=== PATIENT | male | born 1960 | race Caucasian/White ===

== ENCOUNTER 2022-07-20 08:31 | Outpatient (CLI) | payer BC, SELFPAY ==
[2022-07-20 15:34] LABS: Chloride* 100 mmol/L (96-114)
[2022-07-20 15:35] LABS: Potassium* 4.6 mmol/L (3.6-5.1); Sodium* 137 mmol/L (135-149)
[2022-07-20 15:37] LABS: Alanine Aminotransferase* 47 U/L (4-50); Blood Urea Nitrogen* 14 mg/dL (7-30); Carbon Dioxide* 28 mmol/L (20-32); Cholesterol* 121 mg/dL (90-199); Creatinine* 0.7 mg/dL (0.5-1.5); Estimated Glomerular Filt Rate 104 ml/min
[2022-07-20 15:38] LABS: Calcium* 9.9 mg/dL (8.4-10.6); Glucose* 128 mg/dL (60-115); HDL Cholesterol* 32 mg/dL (>=40); LDL Cholesterol Calculated 66 mg/dL (<100); Triglycerides* 116 mg/dL (40-149)
[2022-07-20 16:07] LABS: PSA Screen* 0.38 ng/mL (0.10-4.00)
== END 2022-07-20 08:32 | disposition home or self-care (01) ==
LOC: FBOREF 08:34
PROVIDERS: PCP Family Medicine; Visit Provider Family Medicine
DX: E78.5 Hyperlipidemia, unspecified (principal); I10 Essential (primary) hypertension; E11.9 Type 2 diabetes mellitus without complications; I48.91 Unspecified atrial fibrillation; Z12.5 Encounter for screening for malignant neoplasm of prostate
CPT/HCPCS: 80048; 80061; 84153; 84460

== ENCOUNTER 2023-01-04 14:27 | Outpatient (CLI) | payer BC, SELFPAY | END 2023-01-04 14:28 | disposition home or self-care (01) | PROVIDERS: PCP Family Medicine; Visit Provider Family Medicine | DX: R10.9 Unspecified abdominal pain (principal); E11.9 Type 2 diabetes mellitus without complications; E78.5 Hyperlipidemia, unspecified; I10 Essential (primary) hypertension; I48.91 Unspecified atrial fibrillation | CPT/HCPCS: 80048; 80076; 83690; 85025 ==

== ENCOUNTER 2023-01-05 10:27 | Outpatient (CLI) | payer BC, SELFPAY ==
--- NOTE | 2023-01-05 10:45 | CRLHL7_ITS ---
For Patients: As a result of the Century Cures Act, medical imaging exams and procedure reports are released immediately into your electronic medical record. You may view this report before your referring provider. If you have questions, please contact your health care provider. INDICATION: Right upper quadrant abdominal pain. TECHNIQUE: Right upper quadrant ultrasound. FINDINGS: Cholelithiasis. There is a large stone near the gallbladder neck measuring up to 3 cm potentially impacted. There may be a gallbladder wall polyp versus an adherent stone near the fundus. The gallbladder wall is thickened measuring 6.6 mm. Questionable trace pericholecystic fluid. Echogenic liver suggesting fatty infiltration. No intrahepatic mass. No intrahepatic biliary ductal dilatation. No hydronephrosis of the right kidney which measures 11.9 x 4.8 x 5.2 cm. The visualized proximal abdominal aorta and IVC are unremarkable. The included pancreas is within normal limits. IMPRESSION: 1. Cholelithiasis. Thick-walled gallbladder. Trace pericholecystic fluid. Findings may reflect acute cholecystitis. Please correlate clinically. 2. No biliary ductal dilatation. 3. Echogenic liver suggesting fatty infiltration or other intrinsic hepatic parenchymal process. Dictated by Kade Scott MD @ 01/05/2023 11:19:38 AM (Electronically Signed)
== END 2023-01-05 10:28 | disposition home or self-care (01) ==
LOC: US 10:28
PROVIDERS: PCP Family Medicine; Visit Provider Family Medicine
DX: R10.9 Unspecified abdominal pain (principal); K80.20 Calculus of gallbladder without cholecystitis without obstruction; R11.0 Nausea
CPT/HCPCS: 76705

== ENCOUNTER 2023-01-06 10:55 | Day surgery (SDC) | payer BC, SELFPAY ==
[2023-01-06] VITALS (17 sets, daily range): BP systolic 103–126; BP diastolic 63–80; PULSE 36–86; RESP 12–16; TEMP 36.3–37.1; O2SAT 91–96; BMI 33.3
[2023-01-06] MEDS: LACTATED RINGERS 1000 ML 1,000 ML 100 ML IV ×2 (12:23→13:44)
[2023-01-06] MEDS: SODIUM CHLORIDE 0.9 % (FLUSH) 10 ML SYRINGE IVF (12:23)
[2023-01-06] MEDS: CEFAZOLIN 2 GM INJ IVP (13:43)
[2023-01-06] MEDS: BUPIVACAINE 0.25% 30 ML 20 ML INJECTION (16:14)
--- NOTE | 2023-01-06 16:26 | W.ANESCHARGE ---
Anesthesia Charges Start Date/Time Anesthesia Start Date: 01/06/23 Anesthesia Start Time: 13:26 Stop Date/Time Anesthesia Stop Date: 01/06/23 Anesthesia Stop Time: 16:28
--- NOTE | 2023-01-06 16:27 | P.GSOP_ITS ---
Operative Note Date of procedure: 01/06/23 Pre-op diagnosis: 1. Acute cholecystitis. Post-op diagnosis: 1. Acute on chronic cholecystitis. Type of Procedure: 1. Laparoscopic cholecystectomy. Indications: 62-year-old male was seen by primary care doctor with persistent right upper quadrant pain that started several days ago. The pain was severe and started after eating greasy food. Patient had similar episodes of pain in the past after eating hamburger but this pain was persistent and was not resolving. Upon his workup he was found to have an elevated WBC of 16. His liver function tests and lipase were normal. An ultrasound of the gallbladder was obtained that showed thickened gallbladder wall of 6 mm. There was a stone lodged in the gallbladder neck. The common bile duct was normal in size. On clinical exam patient had tenderness to palpation in the right upper quadrant with positive De León sign. Given patient's clinical history and his physical exam, laparoscopic cholecystectomy was recommended. The procedure was discussed in detail. The risks associated procedure including infection, bleeding, injury to intra-abdominal organs, and injury to the common bile duct were all discussed with the patient and he agreed to proceed. Procedure Description: After discussing the risks and benefits of the procedure, the patient signed informed consent.? The operative site was marked and the patient was brought to the operating room and placed on the operating table in supine position.? Care was taken to pad the patient's pressure points.?? The patient was then intubated by anesthesia.?? The operative site was then prepped and draped in the usual sterile fashion.? A time-out was then performed. A 5-mm laparoscopy port was placed in the left upper quadrant guided by a 5-mm laparoscope placed into a translucent trochar.~ Passage through the layers of the abdominal wall was visualized with the laparoscope.~ A pneumoperitoneum was established. A 0-degree 5-mm laparoscope was advanced into the abdomen. The abdomen was briefly surveyed, and no adhesions were noted. A 10-mm port were placed infraumbilically and two more 5 mm ports were placed on the right under direct visualization by laparoscope. The camera was then changed to 10 mm 30- degree scope and placed into the abdomen through the 10 mm port. The left upper quadrant port entrance was examined and no injury to intra-abdominal organs was identified. The gallbladder was identified. The gallbladder was distended and transverse colon was wall in the gallbladder of. Those transverse colon adhesions were taken down bluntly with suction tip and with hook cautery. The gallbladder was very difficult to grasp and was decompressed with laparoscopic needle and 60 mL syringe. 10 mL of clear fluid was aspirated confirming hydrops gallbladder. The gallbladder was then grasped and retracted cephalad. However, visualization was very difficult because of the long gallbladder and the degree of inflammation surrounding the gallbladder. Peritoneum over the infundibulum was scored with hook cautery. Thick inflammatory rind was peeled off the gallbladder infundibulum bluntly with the suction tip and with hook cautery. Duodenum was adjacent to the field of dissection and care was taken not to injure the duodenum. The infundibulum was grasped and retracted laterally, exposing the peritoneum overlying the triangle of Calot. The cystic duct was identified and inflammatory rind was peeled off the cystic duct. The node of Calot was identified as well and was dissected with hook cautery and retracted into the gallbladder. This exposed the cystic artery. The cystic artery was then circumferentially dissected bluntly and with hook cautery. The cystic artery and the cystic duct were clearly going into the gallbladder. The cystic duct was then doubly ligated with surgical clips on the patient's side and singly clipped on the gallbladder side and divided. The 5 mm clips just barely went across the cystic duct. I elected to place 0-0 PDS endoloop just proximal to the cystic duct clips to avoid a stump leak. The cystic artery was then similarly ligated with 5 mm clips and divided as well. The gallbladder was dissected from the liver bed in retrograde fashion using hookcautery. This dissection was very difficult because it was difficult to tell where the plane between the gallbladder and the liver was. The gallbladder appeared to be intrahepatic. Arterial bleeding was noted during this dissection. This bleeding was coming from a small artery in the gallbladder fossa. This was controlled with two 5 mm clips. Multiple openings were made in the gallbladder during this dissection because of the difficulty visualizing the right plane between the gallbladder and the liver. Thickened sludge came out from the gallbladder. This was suctioned out. Two stones came out from the gallbladder and those were grasped and removed from the abdomen through laparoscopic ports. The gallbladder was placed into an Endo-Catch bag and removed through the infraumbilical incision. The skin and fascia of this infraumbilical incision had to be incised and the incision had to be enlarged to accommodate removal of the gallbladder. Surgical site was examined for bleeding. No bleeding was seen in the surgical field. 1 g of Marianne was sprayed over the gallbladder fossa. The fascia of the infraumbilical incision was then closed with a running 0-0 vicryl stitch. This closure was examined intra-abdominally, and no intra- abdominal structures were incarcerated in the closure. Pneumoperitoneum was completely reduced after viewing removal of the trocars under direct vision. The skin was then closed with 4-0 monocryl and steristrips were applied. Instrument, sponge, and needle counts were correct at closure and at the conclusion of the case. The patient was transferred to PACU in stable condition. Findings: Hydrops gallbladder. Acute on chronic inflammation. Anesthesia: GETA Surgeon: Vonnie Donato MD Estimated blood loss (mL): 50 Specimen: Gallbladder Condition: stable Disposition: PACU
--- NOTE | 2023-01-06 16:33 | W.ANESCHARGE ---
Anesthesia Charges Start Date/Time Anesthesia Start Date: 01/06/23 Anesthesia Start Time: 13:26 Stop Date/Time Anesthesia Stop Date: 01/06/23 Anesthesia Stop Time: 16:28
[2023-01-06] MEDS: OXYCODONE 5 MG TABLET PO (18:10)
[2023-01-06] MEDS: ACETAMINOPHEN 325 MG TABLET 650 MG PO (18:11)
[2023-01-06] MEDS: PIPERACILLIN/TAZOBACTAM 3.375 GM in 0.9 % SODIUM CHLORIDE Mini-bag 100 ML IVPB (18:46)
[2023-01-06] MEDS: 0.9 % SODIUM CHLORIDE 250 ml IV (18:49)
--- NOTE | 2023-01-06 22:29 | PM.IMCN1 ---
Date of Consult Patient: [facility] Patient Consult date: 01/06/23 Requesting Physician: General Surgery Primary Care Provider: Elias Johnson MD Consult Narrative Reason for consult: Assist with postop care of diabetes, hypertension, h/o A Fib Narrative: Tu Correia is a 62 year old man who just underwent an urgent laparoscopic cholecystectomy due to progressive symptoms associated with acute cholecystitis and cholelithiasis. Surgery proceeded without complications. Per surgeon report, gallbladder rather inflamed. Blood sugars have been well controlled on current medication regimen specified below. Hemoglobin A1c most recently 7. Denies hypoglycemic episodes. Denies hyperglycemia. Adhering to his medication regimen. Historically he has had atrial fibrillation and complications associated there with. Underwent cardiac radiofrequency ablation therapy a few years ago own has not had recurrence of atrial fibrillation since. Continues to take diltiazem for hypertension control. Continues to take other antihypertensive medications as well. Generally this is well controlled. Review of Systems Status of ROS: Reports: 10 or more systems reviewed and unremarkable except as noted in History and below Narrative: Denies chest heaviness, pressure, tightness, or pain. Denies dyspnea at rest, paroxysmal nocturnal dyspnea, orthopnea. Has baseline dyspnea with exertion. Denies syncope or near-syncope. Abdominal pain is much improved since surgery. Denies nausea or vomiting. No recent illnesses. Denies fevers, rigors, diaphoresis. Denies cough. Denies dysuria, urgency, frequency, hematuria. Denies diarrhea. No skin rashes or wounds. Bowel and bladder are functioning satisfactorily. No focal motor neurologic deficits. Lives home with his . Generally physically active. No physical limitations. Designates as power of county attorney for health should that be required. Full resuscitation in the event of cardiopulmonary demise. [facility] Medical History (Updated 01/06/23 @ 22:28 by Angel Matthews MD) Eczema ?L30.9 - Dermatitis, unspecified (ICD-10) Spinal stenosis of lumbar region with neurogenic claudication (2014) ?M48.062 - Spinal stenosis, lumbar region with neurogenic claudication (ICD-10) History of sepsis (09/25/14) ?Z86.19 - Personal history of other infectious and parasitic diseases (ICD-10) Chronic low back pain ?M54.50 - Low back pain, unspecified (ICD-10) ?G89.29 - Other chronic pain (ICD-10) Atrial fibrillation ?I48.91 - Unspecified atrial fibrillation (ICD-10) Hypertension ?I10 - Essential (primary) hypertension (ICD-10) Type 2 diabetes mellitus ?E11.9 - Type 2 diabetes mellitus without complications (ICD-10) Surgical History History of vasectomy ?Z98.52 - Vasectomy status (ICD-10) History of partial knee replacement (05/2012) ?Z96.659 - Presence of unspecified artificial knee joint (ICD-10) History of lumbar fusion (2014) ?Z98.1 - Arthrodesis status (ICD-10) History of colonoscopy (08/26/11) ?Z98.890 - Other specified postprocedural states (ICD-10) History of cardiac radiofrequency ablation (RFA) ?Z98.890 - Other specified postprocedural states (ICD-10) History of arthroscopy of right knee (04/30/11) ?Z98.890 - Other specified postprocedural states (ICD-10) History of arthroplasty of left knee (05/03/18) ?Z96.652 - Presence of left artificial knee joint (ICD-10) Family History Mother Diabetes Social History Narrative: ,2 kids [employer] Non-smoker Social EtOH Smoking Status: Former smoker How often do you have a drink containing alcohol: never AUDIT-C Alcohol total score: 0 Non-prescribed substance use: denies use Caffeine: No Little interest or pleasure in doing things: not at all Feeling down, depressed, or hopeless: not at all Meds Home Medications and Allergies Home Medications Medication Instructions Recorded Confirmed Type aspirin 81 mg tablet,delayed 81 mg PO QDAY 02/04/22 01/06/23 History release glucosamine sulfate 500 mg capsule 500 mg PO QDAY 02/04/22 01/06/23 History multivitamin 1 tab PO QDAY 02/04/22 01/06/23 History triamcinolone acetonide 0.1 % 1 applic topical BID PRN 01/06/23 01/06/23 History topical cream Home Medication Comments: Current medications include the following: amoxicillin-pot clavulanate 875-125 mg 1 tab PO BID aspirin 81 mg PO QDAY blood sugar diagnostic ([employer] Verio test strips) USE AND DISCARD 1 TEST STRIP TWO TIMES A DAY. diltiazem HCl ER 240 mg PO QDAY dulaglutide (Trulicity) 1.5 mg (0.5 mL) subcut QWEEK glucosamine sulfate 500 mg PO QDAY hydrocodone-acetaminophen 5-325 mg 1 tab PO Q4-6H PRN linagliptin (Tradjenta) 5 mg PO QDAY losartan-hydrochlorothiazide 100-25 mg 1 tab PO QDAY metformin ER 2,000 mg (4 x 500 mg) PO QPM metoprolol succinate ER 100 mg PO QDAY multivitamin 1 tab PO QDAY simvastatin 20 mg PO QPM triamcinolone acetonide 0.1% 1 applic topical BID Allergies Allergy/AdvReac Type Severity Reaction Status Date / Time yellow dye Allergy Mild Unknown Verified 01/06/23 10:08 SOLANGE Inhibitors AdvReac Intermediate cough Verified 01/06/23 10:08 dabigatran etexilate AdvReac Mild Unknown Verified 01/06/23 11:50 hydromorphone AdvReac Mild Vomiting Verified 01/06/23 11:50 Exam Narrative: Exam Narrative: Patient is several hours postoperatively. He is lying comfortably in his hospital bed. No acute distress. Vision and hearing are grossly normal. No icterus or conjunctival injection. Midline nasal septum normal nasal mucosa oropharynx benign. Dentition fair repair. Neck is supple. Midline trachea. Lungs are clear to auscultation without wheezing, rhonchi, or rales. Heart tones with regular rhythm, normal S1-S2. No murmur, gallop, or rub. PMI not laterally displaced. Abdomen with active bowel sounds at this time. Generally soft. Independent transfer, station, and gait. Moves all 4 extremities. No tremor, asterixis, or ataxia. Aside from surgical incision which I do not examine skin is dry and intact. Const: Vital Signs, click to edit/add: Vital Signs - 24 hr 01/06/23 12:17 01/06/23 16:25 01/06/23 16:30 Temperature 98.0 F 97.4 F L Pulse Rate 75 82 86 Respiratory Rate 16 12 12 Blood Pressure 108/77 103/63 110/65 Pulse Oximetry 96 96 92 Oxygen Delivery Me thod Room Air Room Air Non Rebreather Mas k Oxygen Flow Rate 4 01/06/23 16:35 01/06/23 16:40 01/06/23 16:45 Temperature 97.9 F Pulse Rate 82 81 80 Respiratory Rate 12 12 12 Blood Pressure 111/66 110/73 110/73 Pulse Oximetry 95 96 95 Oxygen Delivery Me thod Non Rebreather Mas k Non Rebreather Mas k Non Rebreather Mas k Oxygen Flow Rate 4 4 4 01/06/23 16:50 01/06/23 16:55 Temperature 97.8 F Pulse Rate 82 80 Respiratory Rate 12 12 Blood Pressure 112/69 Pulse Oximetry 94 95 Oxygen Delivery Me thod Non Rebreather Mas k Non Rebreather Mas k Oxygen Flow Rate 4 4 ECG Attestation: I personally reviewed and interpreted this ECG as follows: Prior ECG tracings: not available for review Interpretation: Normal sinus rhythm. Not in atrial fibrillation. No ischemic changes. Assessment and Plan Assessment and plan (1) Cholecystitis, acute: Status: Acute (2) Biliary colic: Status: Acute (3) Type 2 diabetes mellitus: Status: Acute (4) Hypertension: Status: Acute (5) Atrial fibrillation: Problem comment: History of a fib. s/p cardiac radiofrequency ablation in the past. NSR 01/06/2023. Status: Acute (6) Hyperlipidemia: Status: Acute (7) Chronic low back pain: Status: Acute Plan 1. Reviewed impression with patient. Answers questions. 2. Will hold off on his usual blood glucose management medications. Will institute aspart insulin sliding scale while in hospital. Who transition back to his usual medications at time of discharge from hospital. 3. Continue with his other antihypertensive medications and antihyperlipidemia medications starting tomorrow. 4. Hospitalist will follow patient with General surgery while the patient is in the hospital. 5. Patient agreeable to above stated plans and recommendations.
[2023-01-06] MEDS: MORPHINE 2 MG/ML inj IVP (22:33)
[2023-01-07] MEDS: PIPERACILLIN/TAZOBACTAM 3.375 GM in 0.9 % SODIUM CHLORIDE Mini-bag 100 ML IVPB ×2 (00:04→05:58)
[2023-01-07 00:05] VITALS: BP 116/75; PULSE 81; RESP 16; TEMP 36.7; O2SAT 98
--- NOTE | 2023-01-07 00:09 | PC.NURSE ---
Nursing Care Hours: [id number] Pt this shift calm and cooperative with cares, alert and oriented. BS active x4, bandages CDI. VSS. Advanced diet to regular, tolerating well. No N/V. Pain controlled per eMAR. Small dose IV morphine given to hold over until next oral pain med can be given. Ice applied to abdomen. Pt educated on splinting for cough and deep breathing and on IS. Saline locked. Independent in room after physician underwriter witnesses SB assist to bathroom. Encouraged to eat and drink slowly and encouraged to walk the halls to promote gastric motility. Pt is non insulin dependent diabetic and started on sliding scale after dinner. BS was 309, required 8 units. Pt concerned about hypoglycemia and becoming insulin dependent. Requesting to only take 2 units. Sales Service Representative discussed with pt importance of keeping blood sugars down to aid in wound and tissue healing. Also explained that BS goes up with physical stress like surgery and illness and that using sliding scale and NovoLog helps better manage diabetes. Pt willing to use 4 units and recheck BS in an hour and a half.
[2023-01-07] MEDS: OXYCODONE 5 MG TABLET PO ×2 (00:13→07:40)
[2023-01-07] MEDS: ACETAMINOPHEN 325 MG TABLET 650 MG PO ×2 (00:14→07:42)
[2023-01-07 03:10] VITALS: BP 116/77; PULSE 79; RESP 14; TEMP 36.8; O2SAT 100
--- NOTE | 2023-01-07 06:18 | P.DS_ITS ---
DS: Providers Provider Date Seen: 01/07/23 Primary care physician: Elias Johnson MD Attending Physician on discharge: Vonnie Donato MD DS: Diagnosis Discharge Diagnosis (1) Cholecystitis, acute: Status: Acute DS: Summary Hospital Course Hospital Course: Patient was admitted to the hospital after he underwent laparoscopic cholecystectomy for acute cholecystitis. Patient was treated with IV antibiotics overnight and did well overnight. On the day of discharge she was tolerating regular diet and his pain was controlled with p.o. medications. Time Spent with Patient Time attestation: Total time spent providing and/or coordinating discharge services: Exam Narrative: Exam Narrative: Abdomen is soft, not distended, minimally tender to palpation at the incision sites, laparoscopic incisions are covered with Steri-Strips with no surrounding erythema. Const: Vital Signs, click to edit/add: Vital Signs - 24 hr 01/06/23 12:17 01/06/23 16:25 01/06/23 16:30 Temperature 98.0 F 97.4 F L Pulse Rate 75 82 86 Pulse Rate [Right Pulse Oximeter] Respiratory Rate 16 12 12 Blood Pressure 108/77 103/63 110/65 Blood Pressure [Le ft Arm] Pulse Oximetry 96 96 92 Oxygen Delivery Me thod Room Air Room Air Non Rebreather Mas k Oxygen Flow Rate 4 01/06/23 16:35 01/06/23 16:40 01/06/23 16:45 Temperature 97.9 F Pulse Rate 82 81 80 Pulse Rate [Right Pulse Oximeter] Respiratory Rate 12 12 12 Blood Pressure 111/66 110/73 110/73 Blood Pressure [Le ft Arm] Pulse Oximetry 95 96 95 Oxygen Delivery Me thod Non Rebreather Mas k Non Rebreather Mas k Non Rebreather Mas k Oxygen Flow Rate 4 4 4 01/06/23 16:50 01/06/23 16:55 01/06/23 17:20 Temperature 97.8 F 98.4 F Pulse Rate 82 80 Pulse Rate [Right Pulse Oximeter] 80 Respiratory Rate 12 12 16 Blood Pressure 112/69 Blood Pressure [Le ft Arm] 112/72 Pulse Oximetry 94 95 91 Oxygen Delivery Me thod Non Rebreather Mas k Non Rebreather Mas k Room Air Oxygen Flow Rate 4 4 01/06/23 17:45 01/06/23 18:00 01/06/23 18:15 Temperature Pulse Rate Pulse Rate [Right Pulse Oximeter] 81 36 L 84 Respiratory Rate 16 16 16 Blood Pressure Blood Pressure [Le ft Arm] 117/72 118/69 113/76 Pulse Oximetry 91 93 95 Oxygen Delivery Me thod Room Air Room Air Room Air Oxygen Flow Rate 01/06/23 18:45 01/06/23 19:15 01/06/23 20:00 Temperature 98.7 F Pulse Rate Pulse Rate [Right Pulse Oximeter] 85 86 86 Respiratory Rate 16 16 16 Blood Pressure Blood Pressure [Le ft Arm] 113/73 110/80 108/71 Pulse Oximetry 95 94 93 Oxygen Delivery Me thod Room Air Room Air Room Air Oxygen Flow Rate 01/06/23 20:28 01/06/23 21:01 01/07/23 00:05 Temperature 98.5 F Pulse Rate 82 Pulse Rate [Right Pulse Oximeter] 84 81 Respiratory Rate 16 16 16 Blood Pressure Blood Pressure [Le ft Arm] 111/71 126/78 Pulse Oximetry 91 Oxygen Delivery Me thod Room Air Room Air Oxygen Flow Rate 01/07/23 00:05 01/07/23 00:05 01/07/23 03:10 Temperature 98.0 F 98.0 F 98.2 F Pulse Rate Pulse Rate [Right Pulse Oximeter] 81 81 79 Respiratory Rate 16 16 14 Blood Pressure Blood Pressure [Le ft Arm] 116/75 116/75 116/77 Pulse Oximetry 98 98 100 Oxygen Delivery Me thod Room Air Room Air Room Air Oxygen Flow Rate Discharge Plan Discharge Disposition: Home, Self-Care Discharging Surgeon: Vonnie Donato Follow-Up Appointment: [address] [facility] Prescriptions: New oxycodone 5 mg capsule 5 mg PO Q6H PRN (Reason: pain) Qty: 20 0RF Continued hydrocodone-acetaminophen 5-325 mg tablet 1 tab PO Q4-6H PRN (Reason: pain) Qty: 15 0RF Trulicity 1.5 mg/0.5 mL pen injector 1.5 mg subcut QWEEK Qty: 2 12RF simvastatin 20 mg tablet 20 mg PO QPM Qty: 90 3RF metoprolol succinate 100 mg tablet extended release 24 hr 100 mg PO QDAY Qty: 90 3RF losartan-hydrochlorothiazide 100-25 mg tablet 1 tab PO QDAY Qty: 90 3RF diltiazem HCl 240 mg capsule,extended release 24 hr 240 mg PO QDAY Qty: 90 3RF Tradjenta 5 mg tablet 5 mg PO QDAY Qty: 90 3RF triamcinolone acetonide 0.1 % cream 1 applic topical BID PRN glucosamine sulfate 500 mg capsule 500 mg PO QDAY Rx Instructions: administer with a meal aspirin 81 mg tablet,delayed release (DR/EC) 81 mg PO QDAY multivitamin Tablet 1 tab PO QDAY metformin 500 mg tablet extended release 24 hr 2,000 mg PO QPM Qty: 360 3RF Discontinued amoxicillin-pot clavulanate 875-125 mg tablet 1 tab PO BID Qty: 10 0RF Activity Level: No strenuous activity Activity Detail: No strenuous activity or lifting more than 15-20 lbs for 4-6 weeks. Discharge Diet: Regular Patient Instructions: Surgical Site Infections (DC), General Anesthesia (DC), Laparoscopic Cholecystectomy (DC), Post-Operative Instructions: Laparoscopic Cholecystectomy Additional Instructions: Take laxatives such as MiraLax or senna daily for the next 2 weeks. Forms: Work/School Release Follow-up: Vonnie Donato MD [Staff Physician] - Discharge Orders: Discharge Order (Routine); Ordered 01/07/23 Ordered By: Vonnie Donato
--- NOTE | 2023-01-07 06:37 | PC.NURSE ---
Pt alert and oriented x3. Afebrile. Pt reports pain 5/10 in abdomen, pain managed with PRN medications. Pt denies chest pain, SOB, and N/V.?Pt is up ad marilee in room. Residence Life Coordinator was given report on pt?s concerns about blood sugar and insulin, teletypewriter installer brought in BS machine into room, pt refused saying ?let?s do it in the morning?. Residence Life Coordinator took BS at 0630 01/07/23?it was 121. Pt is voiding.?Pt is tolerating a reg diet. Pt slept throughout most of night. ?
[2023-01-07 07:37] LABS: Hemoglobin* 15.6 gm/dL (13.5-17.5)
[2023-01-07] MEDS: dilTIAZem 240 MG CAP (CD) PO (07:39)
[2023-01-07] MEDS: hydroCHLOROthiazide 25 MG TABLET PO (07:41)
[2023-01-07] MEDS: METOPROLOL SUCCINATE (XL) 100 MG TAB PO (07:41)
[2023-01-07] MEDS: LOSARTAN POTASSIUM 50 MG TABLET 100 MG PO (07:42)
[2023-01-07 07:46] VITALS: BP 134/102; PULSE 95; RESP 18; TEMP 36.7; O2SAT 94
--- NOTE | 2023-01-07 10:43 | PC.NURSE ---
shift note: pt up in bermeo indept x2 and ambulated 300ft. pt taught splinting abd while changing position and encouraged to hold abd with coughing. Pt instructed to use IS post hospital. Dc'd #[address] hand intact. Reviewed dc instructions with pt and copies sent with pt at mo. Belongings reviewed and sent with pt at mo. Sent copy of pain scale with pt after explaination of pain control prn options of meds, ice, and position. Pt was medicated this a.m with oxycodone with relief 40 mins after med given
--- NOTE | 2023-01-07 10:46 | PC.NURSE ---
shift note addendum: lap site x3 intact with umbilicus drsg intact. explained to pt aftercare of lap sites and when to contact Dr. brando bradford
--- NOTE | 2023-01-07 12:33 | PM.IMPN1 ---
Progress Note: A&P Assessment and plan (1) Status post cholecystectomy: Problem details: Date of surgery 01/07/2020 - doing well from a hospitalist standpoint. Blood sugar and blood pressure are well managed. Discharge criteria met. Status: Acute (2) Type 2 diabetes mellitus: Problem details: Continue current outpatient cares Status: Acute (3) Hypertension: Problem details: Continue current outpatient cares Status: Acute (4) Atrial fibrillation: Problem details: History of a fib. s/p cardiac radiofrequency ablation in the past. NSR 01/06/2023. Status: Acute (5) Hyperlipidemia: Status: Acute (6) Chronic low back pain: Status: Acute Subjective Date Seen: 01/07/23 Interval history: Daily Progress Note - Hospital Medicine Day #: 2 CC: s/p shaneka brandon HTN Hospital med team f/u OVERNIGHT UPDATES FROM STAFF & MED, LAB, IMAGING UPDATES Patient did well overnight. He has advanced his diet. His pain is well controlled. His blood pressure is up a little bit this was expected as he had not had his meds in over 24 hours. He was given his home antihypertensives this morning. His blood sugar is acceptable. He is asking for discharge. Objective: Vitals: see above Lungs: Clear. Cardiac: S1S2. Disposition/Potential discharge - Likely to return to previous living situation. Total time is 35 minutes with greater than 50% spent in counseling and coordination of care. Exam Const: Vital Signs, click to edit/add: Vital Signs - 24 hr 01/06/23 16:25 01/06/23 16:30 01/06/23 16:35 Temperature 97.4 F L Pulse Rate 82 86 82 Pulse Rate [Right Pulse Oximeter] Respiratory Rate 12 12 12 Blood Pressure 103/63 110/65 111/66 Blood Pressure [Le ft Arm] Pulse Oximetry 96 92 95 Oxygen Delivery Me thod Room Air Non Rebreather Mas k Non Rebreather Mas k Oxygen Flow Rate 4 4 01/06/23 16:40 01/06/23 16:45 01/06/23 16:50 Temperature 97.9 F Pulse Rate 81 80 82 Pulse Rate [Right Pulse Oximeter] Respiratory Rate 12 12 12 Blood Pressure 110/73 110/73 112/69 Blood Pressure [Le ft Arm] Pulse Oximetry 96 95 94 Oxygen Delivery Me thod Non Rebreather Mas k Non Rebreather Mas k Non Rebreather Mas k Oxygen Flow Rate 4 4 4 01/06/23 16:55 01/06/23 17:20 01/06/23 17:45 Temperature 97.8 F 98.4 F Pulse Rate 80 Pulse Rate [Right Pulse Oximeter] 80 81 Respiratory Rate 12 16 16 Blood Pressure Blood Pressure [Le ft Arm] 112/72 117/72 Pulse Oximetry 95 91 91 Oxygen Delivery Me thod Non Rebreather Mas k Room Air Room Air Oxygen Flow Rate 4 01/06/23 18:00 01/06/23 18:15 01/06/23 18:45 Temperature Pulse Rate Pulse Rate [Right Pulse Oximeter] 36 L 84 85 Respiratory Rate 16 16 16 Blood Pressure Blood Pressure [Le ft Arm] 118/69 113/76 113/73 Pulse Oximetry 93 95 95 Oxygen Delivery Me thod Room Air Room Air Room Air Oxygen Flow Rate 01/06/23 19:15 01/06/23 20:00 01/06/23 20:28 Temperature 98.7 F 98.5 F Pulse Rate 82 Pulse Rate [Right Pulse Oximeter] 86 86 Respiratory Rate 16 16 16 Blood Pressure Blood Pressure [Le ft Arm] 110/80 108/71 111/71 Pulse Oximetry 94 93 Oxygen Delivery Me thod Room Air Room Air Room Air Oxygen Flow Rate 01/06/23 21:01 01/07/23 00:05 01/07/23 00:05 Temperature 98.0 F Pulse Rate Pulse Rate [Right Pulse Oximeter] 84 81 81 Respiratory Rate 16 16 16 Blood Pressure Blood Pressure [Le ft Arm] 126/78 116/75 Pulse Oximetry 91 98 Oxygen Delivery Me thod Room Air Room Air Oxygen Flow Rate 01/07/23 00:05 01/07/23 03:10 01/07/23 07:46 Temperature 98.0 F 98.2 F 98.1 F Pulse Rate Pulse Rate [Right Pulse Oximeter] 81 79 95 Respiratory Rate 16 14 18 Blood Pressure Blood Pressure [Le ft Arm] 116/75 116/77 134/102 H Pulse Oximetry 98 100 94 Oxygen Delivery Me thod Room Air Room Air Room Air Oxygen Flow Rate Labs Labs: Laboratory Results - last 24 hr 01/07/23 06:54 Hgb 15.6
== END 2023-01-07 10:30 | disposition home or self-care (01) ==
LOC: OR 14:35 → MEDSURG 17:27
PROVIDERS: PCP Family Medicine; Visit Provider Surgery
PROC: 0FT44ZZ Resection of Gallbladder, Percutaneous Endoscopic Approach (ICD-10-PCS; CPT 47562; principal; 2023-01-06 13:45)
DX: K80.12 Calculus of gallbladder with acute and chronic cholecystitis without obstruction (principal); K82.1 Hydrops of gallbladder; I10 Essential (primary) hypertension; I48.91 Unspecified atrial fibrillation; E11.9 Type 2 diabetes mellitus without complications; G89.29 Other chronic pain; M54.50 Low back pain, unspecified
CPT/HCPCS: 47562; 00790; 36415; 82962; 84132; 85018; 88304; A9270; J0330; J0665; J0690; J1100; J2250; J2270; J2405; J2543; J2704; J3010; J3490; J7050; J7120

== ENCOUNTER 2023-07-28 08:07 | Outpatient (CLI) | payer BC, SELFPAY ==
[2023-07-28 14:27] LABS: Microalbumin Creatinine Ratio 0 mg/g (0-30); Microalbumin Urine 2 mg/dL
[2023-07-28 15:37] LABS: Creatinine Urine 370.6 mg/dL
== END 2023-07-28 08:08 | disposition home or self-care (01) ==
PROVIDERS: PCP Family Medicine; Visit Provider Family Medicine
DX: E78.2 Mixed hyperlipidemia (principal); E11.9 Type 2 diabetes mellitus without complications; Z79.85 Long-term (current) use of injectable non-insulin antidiabetic drugs; Z79.84 Long term (current) use of oral hypoglycemic drugs; Z12.5 Encounter for screening for malignant neoplasm of prostate
CPT/HCPCS: 80061; 82043; 82570; G0103

== ENCOUNTER 2024-09-26 08:44 | Outpatient (CLI) | payer MEDICARE, BC, SELFPAY | END 2024-09-26 08:45 | disposition home or self-care (01) | PROVIDERS: PCP Family Medicine; Visit Provider Family Medicine | DX: I10 Essential (primary) hypertension (principal); E78.2 Mixed hyperlipidemia; E11.9 Type 2 diabetes mellitus without complications; Z12.5 Encounter for screening for malignant neoplasm of prostate; Z79.4 Long term (current) use of insulin | CPT/HCPCS: 80048; 80061; 84460; G0103 ==

== ENCOUNTER 2025-03-27 07:51 | Outpatient (CLI) | payer MEDICARE, BC, SELFPAY | END 2025-03-27 07:52 | disposition home or self-care (01) | LOC: NFLDREF 03-29 11:51 | PROVIDERS: PCP Family Medicine; Referring Provider Family Medicine; Visit Provider Family Medicine | DX: E11.9 Type 2 diabetes mellitus without complications (principal); Z79.4 Long term (current) use of insulin | CPT/HCPCS: 82043; 82570 ==